=== PATIENT | female | born 1960 | race Caucasian/White ===

== ENCOUNTER → 2017-08-25 | Outpatient (CLI) | payer OTHER ==
[~2017-08-25] MED LIST: ESTRADIOL1 MG PO
--- NOTE | 2017-08-25 13:53 | Diagnostic Imaging Report ---
PROCEDURE: CT CHEST WITHOUT CONTRAST CT scan of the chest WITHOUT intravenous contrast, using standard protocol. TECHNIQUE: The chest was scanned utilizing a multidetector helical scanner from the apex to the level of the adrenal glands. No IV contrast was administered per physician's request. Coronal and sagittal multiplanar reformations were obtained. COMPARISON: Patients [facility], CT, CT CHEST WO, 02/10/2017, 9:52. INDICATIONS: PNEUMONIA 6 months ago, followup FINDINGS: Lines/tubes: None. Lungs and Airways: Stable mild apical pleural-parenchymal scarring. Interval resolution of previously visualized right upper lobe groundglass opacities. No masses, nodules, or consolidation. Airways are clear, without endobronchial lesions. Pleura: The pleural spaces are clear. Heart and mediastinum: Thyroid is unremarkable. Heart size is normal. No pericardial effusion. Main pulmonary artery is normal in caliber, measuring 2.2 cm. Lymph nodes: No mediastinal, hilar, or axillary adenopathy. Abdomen: Limited views of the upper abdomen show no abnormality within the visualized liver, spleen, pancreas, or kidneys. The adrenal glands are normal. Stable small hiatal hernia. Bones: No aggressive lytic lesions. Generalized osteopenia. Vertebroplasty changes At T3. Lucent lesion with mildly prominent trabecula in the T8 vertebral body is stable and likely represents a hemangioma (series 2, image 61 and sagittal image 59). Visualized soft tissues are unremarkable. IMPRESSION: 1. Interval resolution of previously visualized right upper lobe groundglass opacities. Essentially clear lungs, without nodules, masses, or consolidation. 2. Stable small hiatal hernia. Fer Traylor M.D. Dictated by: Fer Traylor M.D. on 08/25/2017 at 13:56 Electronically approved by: Fer Traylor M.D. on 08/25/2017 at 13:56
== END ==
LOC: CT 07:45
PROVIDERS: ATTEND Internal Medicine
DX: R93.8 Abnormal findings on diagnostic imaging of other specified body structures (principal)
CPT/HCPCS: 71250

== ENCOUNTER → 2018-06-25 | Outpatient (CLI) | payer BC ==
--- NOTE | 2018-06-25 11:17 | Diagnostic Imaging Report ---
Examination: CT CERVICAL SPINE WITHOUT CONTRAST HISTORY:Neck pain. COMPARISON:None. TECHNIQUE: Multidetector helical axial images were obtained without contrast from the foramen magnum to T1. Coronal and sagittal reformatted images were done. Bone and soft tissue windows were evaluated. Dose modulation, iterative reconstruction, and/or weight based adjustment of the mA/kV was utilized to reduce the radiation dose to as low as reasonably achievable. FINDINGS: Alignment:Normal alignment and lordosis. Vertebrae: Normal height and density. No acute fracture, infection or neoplasm. Prior anterior discectomy and fusion at C6 and C7. Partially visualized cement augmentation of the T3 vertebral body with a lytic lesion of the vertebral body extending to the right pedicle and facet. Disc space heights: Normal height. Caliber of spinal canal: Developmentally normal. Posterior fossa and craniocervical junction: Foramen magnum patent. No Chiari 1 malformation. Soft tissues: No abnormality. Degenerative changes: C6-C7: Mild bilateral uncovertebral arthropathy results in mild bilateral foraminal narrowing. No canal stenosis. Visualized lung apices: No abnormalities. IMPRESSION: 1. No acute abnormalities. 2. Prior anterior discectomy and fusion at C6 and C7. 3. Lytic lesion of the T3 vertebral body which extends into the right posterior elements and has been previously augmented with cement. The lesion in the T3 vertebral body is concerning for metastasis or myeloma. Signed by: Dr. Tasia Cheney M.D. on 06/25/2018 11:14 AM
--- NOTE | 2018-06-25 11:31 | Diagnostic Imaging Report ---
Examination: CT Thoracic Spine without Contrast History: Back pain. Comparison studies: None Technique: Axial images were reformatted obtained through the thoracic spine. Coronal and sagittal reconstructions obtained from the axial data. Dose modulation, iterative reconstruction, and/or weight based adjustment of the mA/kV was utilized to reduce the radiation dose to as low as reasonably achievable. Intravenous contrast: None Findings: Alignment: Normal kyphosis. No scoliosis. Soft tissues: Atherosclerotic calcification of the partially visualized and aortic arch and descending thoracic aorta Paraspinal muscles: No abnormalities. Vertebrae: No infection or neoplasm. Prior cement augmentation of the T3 vertebral body with a lytic lesion encompassing nearly the entire vertebral body and involving the right pedicle and right superior and inferior articulating facets. There is mild soft tissue at the right lateral margin of the vertebral body. There is mild retropulsion of the posterior and inferior endplate causing mild right neural foraminal narrowing. No definite canal stenosis. There is an age-indeterminate compression fracture of the anterior aspect of the T8 vertebral body with disruption of the cortex (series sagittal bone, image #19 and series coronal bone, image numbers 31 and 32). There is a lytic lesion involving the anterior aspect of the T8 vertebral body, measuring 1.1 x 1.1 x 1.8 cm (superoinferior x anteroposterior x transverse dimensions). Within the matrix of the lesion, there is no striation. There is no definite associated soft tissue abnormality in the prevertebral region. Degenerative changes: None. IMPRESSION: 1. Age-indeterminate compression fracture of the T8 vertebral body with a lytic lesion, concerning for metastasis or myeloma. Further evaluation with a thoracic spine MRI with contrast is recommended. 2. Lytic lesion of the T3 vertebral body involving the right posterior elements is also concerning for metastasis or myeloma. Prior cement augmentation of T3 with mild retropulsion of the inferior posterior endplate causing mild right neural foraminal narrowing. No definite canal stenosis. Signed by: Dr. Tasia Cheney M.D. on 06/25/2018 11:28 AM
== END ==
LOC: CT 07:39
PROVIDERS: ATTEND Family Medicine
DX: M47.22 Other spondylosis with radiculopathy, cervical region (principal); Z98.1 Arthrodesis status
CPT/HCPCS: 72125; 72128

== ENCOUNTER 2021-08-05 16:32 | Emergency (ER) | payer OTHER ==
[~2021-08-05] VITALS: Ht 162.6 cm; Wt 58.1 kg
[2021-08-05] MEDS ORDERED: HYDROCODONE/APAP 5MG-325MG TAB PO ONE (18:15)
[2021-08-05] MEDS ORDERED: ACETAMINOPHEN-1 EAC4 PEG (19:54)
== END 2021-08-05 20:37 | disposition home or self-care (01) ==
LOC: ER 17:10
DX: S93.691A Other sprain of right foot, initial encounter (principal); X50.1XXA Overexertion from prolonged static or awkward postures, initial encounter; Y93.01 Activity, walking, marching and hiking; Y92.89 Other specified places as the place of occurrence of the external cause
CPT/HCPCS: 93005; 99283